=== PATIENT | female | born 1980 | race Caucasian/White ===

== ENCOUNTER 2017-06-07 21:40 | Emergency (ER) | payer OTHER ==
[~2017-06-07] VITALS: Ht 172.7 cm; Wt 52.2 kg
--- NOTE | 2017-06-07 21:58 | NUR ---
PT ALERT, ANSWERS QUESTIONS APPROPRIATELY, DENIES WANTING A WARM BLANKET, FAMILY AT BEDSIDE
[2017-06-07] MEDS ORDERED: NORCO 5MG PO STA (21:59)
--- NOTE | 2017-06-07 22:06 | NUR ---
PT AMBULATED TO XRAY
--- NOTE | 2017-06-07 22:13 | NUR ---
RETURNED TO FROM XRAY, REQUESTED AND PROVIDED WITH WARM BLANKET.
[2017-06-07] MEDS ORDERED: NORCO 5MG PO ONE (22:18)
--- NOTE | 2017-06-07 22:33 | DIREP ---
PROCEDURE:XRAY STERNUM MIN 2VWS COMPARISON:[facility], CR, XRAY CHEST 2 VWS, 06/07/2017, 09:57 PM. INDICATIONS:DIRECT INJURY TO STERNUM, FELL ON FENCE FINDINGS: Oblique and lateral views of the sternum were provided. No displaced sternal fracture is identified. Sternomanubrial alignment is normal. Visualized portions of the lungs are clear. Overlying soft tissues are unremarkable. CONCLUSION: Unremarkable radiographs of the sternum. Dictated by: Abdirizak Silva M.D. On 06/07/2017 at 10:32 PM
--- NOTE | 2017-06-07 22:34 | DIREP ---
PROCEDURE:CHEST 2 VIEWS COMPARISON:[facility], CR, XRAY STERNUM MIN 2VWS, 06/07/2017, 09:57 PM. INDICATIONS:DIRECT INJURY TO STERNUM, FELL ON FENCE FINDINGS: LUNGS/PLEURA:No significant pulmonary parenchymal abnormalities. No effusion or pneumothorax. VASCULATURE:Normal. Unremarkable pulmonary vasculature. CARDIAC:Normal. No cardiac silhouette abnormality or cardiomegaly. MEDIASTINUM:Normal. No visible mass or adenopathy. BONES:Mild, left convexity, thoracolumbar curvature, which may be positional. No acute abnormality. OTHER:Negative. CONCLUSION: No acute cardiopulmonary abnormality. Dictated by: Abdirizak Silva M.D. On 06/07/2017 at 10:33 PM
--- NOTE | 2017-06-07 23:07 | ER.PDOC ---
General Chief Complaint: Trauma Stated Complaint: RIB PAIN Time seen by MD: 20:04 Source: patient, family History of Present Illness Initial Comments pt ran to avoid bull and jumped the fence to land on panel on her chest Timing/Duration: 1-3 hours Severity/Quality: moderate Radiation: no radiation Prior CP/Workup: No Prior Chest Pain Modifying Factors: No antacids, No breathing, No coughing, No defecating, No eating, No exercise, No lying down, No morphine, No movement, No nitroglycerin, No oxygen, No palpation, No rest, No other Allergies: Coded Allergies: No Known Allergies (Unverified , 06/07/17) Past Medical History Medical History: no pertinent history Surgical History: , tubal LMP (females 10-50): last week Social History Smoking: non-smoker Alcohol Use: none Drug Use: none Reviewed Nursing Reviewed: Vital Signs, Abn. Noted, Nursing Assessment Constitutional: no symptoms reported EENTM: no symptoms reported Respiratory: see HPI, other (chest wall tenderness anteriorly) Cardiovascular: see HPI, chest pain (chest wall not cardiac) Gastrointestinal: no symptoms reported Physical Exam General Appearance: Mild Distress HEENT: PERRL/EOMI, Normal ENT Inspection, TMs Normal, Pharynx Normal Neck: Non-Tender, Full Range of Motion, Supple, Normal Inspection Respiratory: lungs clear, normal breath sounds, no respiratory distress, no accessory muscle use, other (tender to palpation sternum and ribs) Cardiovascular: Normal Peripheral Pulses, Regular Rate, Rhythm, No Edema, No Gallop, No JVD, No Murmur Gastrointestinal: Normal Bowel Sounds, No Organomegaly, No Pulsatile Mass, Non Tender, Soft Results/Orders Results/Orders Administered Medications Medications (Trade) Dose Ordered Sig/Phu Route PRN Reason Start Time Stop Time Status Last Admin Dose Admin Acetaminophen/ Hydrocodone Bitart ([place] 5mg) 1 ea OT STAT PO 06/07/17 21:59 06/07/17 22:03 DC 06/07/17 22:20 Progress Progress discussed xray , no fx EKG/XRAY/CT/US XRAY: chest XRAY Comments: no fx Departure Time of Disposition: 23:05 Disposition: 01 HOME, SELF-CARE Impression: Primary Impression: Contusion, chest wall Condition: Improved Referrals: PCP,UNKNOWN (PCP) PRIMARY CARE PROVIDER Additional Instructions: take ibuprofen or aleve around the clock at regular intervals x 48 hrs ; take norco for acute pain, Problem Qualifiers Primary Impression: Contusion, chest wall Encounter type: initial encounter Laterality: unspecified laterality Qualified Codes: S20.219A - Contusion of unspecified front wall of thorax, initial encounter TAYA REN MD Jun 07, 2017 23:07
--- NOTE | 2017-06-07 23:21 | NUR ---
DISCHARGE DISCHARGE INSTRUCTIONS AND PRESCRIPTION MEDICATIONS DISCUSSED. PT AND FAMILY VERBALIZED UNDERSTANDING. ENCOURAGED TO RETURN FOR ANY CONCERNS.
[2017-06-07 23:25] VITALS: BP 121/74
== END 2017-06-07 23:21 | disposition home or self-care (01) ==
LOC: ER 21:40
DX: S20.219A Contusion of unspecified front wall of thorax, initial encounter (principal); W17.89XA Other fall from one level to another, initial encounter; Y93.39 Activity, other involving climbing, rappelling and jumping off; Y92.89 Other specified places as the place of occurrence of the external cause; Y99.8 Other external cause status
CPT/HCPCS: 71020; 71120; 99284